=== PATIENT | male | born 1995 | race Asian ===

== ENCOUNTER 2016-09-08 03:42 | Emergency (ER) | payer MEDICAID ==
[2016-09-08] MEDS ORDERED: RANITIDINE 50 MG/2 ML VIAL IVP ONE (03:46)
[2016-09-08] MEDS ORDERED: methylPREDNISolone SOD SUCC 125 MG/2 ML VIAL IVP ONE (03:46)
[2016-09-08] MEDS ORDERED: NS 1,000 ML IV ONE (03:47)
--- NOTE | 2016-09-08 03:51 | EDPHY ---
H & P HPI/ROS: HPI CHIEF COMPLAINT: Allergic reaction HISTORY OF PRESENT ILLNESS: This patient very pleasant 21-year-old male, he presents emergency room with allergic reaction. He states around half an hour ago to an hour he woke up with itching his skin. He started to have trouble breathing and a scratchy throat. He has never had allergy reaction before. States that he ate Pecan nuts around 11PM, he did not have any initial reaction. However around 3:00 a.m. are approximately an hour ago he woke up itching. He realized that he had hives all over he drove here to the emergency room he checked in by private vehicle up front. It was immediately brought back to ER room 5. Upon arrival here in the emergency room was immediately given IM epinephrine 0.3 mg, IV Solu-Medrol, IV Benadryl and IV Zantac. He is placed on full monitoring engineer. He has no respiratory distress he has no stridor. He is coughing and has diffuse urticaria throughout his body. No wheezing. No stridor. Vital signs are stable he is not hypotensive he is not nauseous he is not vomiting. Heart rate 94. He has never had allergic reaction before. Has not eaten PECAN nuts in 3 year, but no known allergic reaction history. Patient denies anything else new denies new medications or contact. Past Medical History: No medical history Past Surgical History: No surgical history Social History: Smokes occasional marijuana, tobacco, denies illicit drugs. Or alcohol. Family History: Noncontributory ROS REVIEW OF SYSTEMS: A comprehensive 10 point review of systems is otherwise negative aside from elements mentioned in the history of present illness. Exam Constitutional appears nontoxic triage nursing summary reviewed, vital signs reviewed, awake/alert. Vital signs are stable. Eyes normal conjunctivae and sclera, EOMI, PERRLA. HENT no stridor, normal inspection, atraumatic, moist mucus membranes, no epistaxis, neck supple/ no meningismus, no raccoon eyes. Respiratory clear to auscultation bilaterally, normal breath sounds, no respiratory distress, no wheezing. Cardiovascular rate normal, regular rhythm, no murmur, no edema, distal pulses normal. Gastrointestinal soft, non-tender, no rebound, no guarding, normal bowel sounds, no distension, no pulsatile mass. Genitourinary no CVA tenderness. Musculoskeletal no midline vertebral tenderness, full range of motion, no calf swelling, no tenderness of extremities, no meningismus, good pulses, neurovascularly intact. Skin diffuse urticaria present Neurologic awake, alert and oriented x 3, AAOx3, moves all 4 extremities equally, motor intact, sensory intact, CN II-XII intact, normal cerebellar, normal vision, normal speech. Psychiatric normal mood/affect. Heme/Lymph/Immune no lymphadenopathy. Differential Diagnosis: Includes but is not limited to in a particular order, severe allergic reaction, anaphylaxis, not allergy Medical Decision Making: Plan for this patient full monitoring engineer, IV establishment, IM epinephrine 0.3 mg, IV Solu-Medrol, IV Benadryl, IV Zantac. Fluid bolus. Normal saline. We will closely monitor for rebound allergic reaction progression of symptoms. Will need to monitor him for at least 3-4 hours. Re-evaluation: 0402AM: Re-examination at this time patient resting comfortably. Feels better after IM epinephrine IV Solu-Medrol IV Zantac IV Benadryl. Vital signs remained stable. Urticaria is improving. No further airway vomiting no stridor no wheezing no drooling. No trouble handling secretions. 0647AM: I did re-evaluate this patient this time is maintained stable. No further signs of allergic reaction. His urticaria is completely resolved. No coughing no trouble breathing no nausea vomiting abdominal cramping. No rash. No progression of symptoms. Been here in the emergency room for 3 hours monitored no further signs of any further allergic reaction. He would like to go home. I explained is risk for rebound reaction he needs of watch out for this. Will have a prescription for prednisone, Benadryl, Zantac for the next 3 days. Epinephrine pen. He understands return emergency room if develops any worsening symptoms includes rebound allergic reaction. He understands if he has severe reaction call 911. He should follow up with an tool keeper. Source: Patient - Medical/Surgical History Hx Asthma: No Hx Chronic Respiratory Disease: No Hx Diabetes: No Hx Cardiac Disease: No Hx Renal Disease: No Other PMH: Denies - Social History Smoking Status: Light smoker Constitutional: Initial Vital Signs Temperature (C) 36.9 C 09/08/16 03:52 Heart Rate 90 09/08/16 03:52 Respiratory Rate 24 H 09/08/16 03:52 Blood Pressure 137/93 H 09/08/16 03:52 O2 Sat (%) 93 09/08/16 03:52 O2 Delivery Mode Room Air O2 (L/minute) 2 Allergies/Adverse Reactions: tree nut [Nuts] Allergy (Verified 09/08/16 03:52) Home Medications: Medication Instructions Recorded Ibuprofen [Motrin (*)] 800 mg PO TID PRN #30 tab 09/25/15 EPINEPHrine [Epipen 0.3 MG] 0.3 mg IM ONCE #2 syr 09/08/16 Ranitidine HCl [Zantac] 150 mg PO DAILY #3 tablet 09/08/16 diphenhydrAMINE [Benadryl 25 MG 25 mg PO BID #6 tab 09/08/16 (*)] predniSONE 60 mg PO DAILY #9 tab 09/08/16 Medical Decision Making - Data Points Medications Given: Discontinued Medications Diphenhydramine HCl (Benadryl Injection) 50 mg IVP EDNOW ONE Stop: 09/08/16 03:47 Last Admin: 09/08/16 03:57 Dose: 50 mg Epinephrine HCl (Epinephrine) 0.3 mg IM EDNOW ONE Stop: 09/08/16 03:47 Last Admin: 09/08/16 03:57 Dose: 0.3 mg Sodium Chloride (Ns) 1,000 mls @ 0 mls/hr IV ONCE ONE PRN Reason: Wide Open Stop: 09/08/16 03:48 Last Admin: 09/08/16 03:57 Dose: 1,000 mls Methylprednisolone Sodium Succinate (Solu-Medrol) 125 mg IVP EDNOW ONE Stop: 09/08/16 03:47 Last Admin: 09/08/16 03:57 Dose: 125 mg Ranitidine HCl (Zantac) 50 mg IVP EDNOW ONE Stop: 09/08/16 03:47 Last Admin: 09/08/16 03:58 Dose: 50 mg Departure - Departure Disposition: Home, Routine, Self-Care Clinical Impression: Nut allergy Anaphylaxis Qualifiers: Encounter type: initial encounter Qualified Code(s): T78.2XXA - Anaphylactic shock, unspecified, initial encounter Allergic reaction Qualifiers: Encounter type: initial encounter Qualified Code(s): T78.40XA - Allergy, unspecified, initial encounter Condition: Good Instructions: Urticaria (ED), Food Allergy (ED), Anaphylaxis (ED), Allergies ( ED) Additional Instructions: 1.Return to the emergency room immediately if he develops any worsening symptoms this includes shortness of breath, trouble swelling, recurrence of rash. 2. I do recommend he follow up with an tool keeper to get formal allergy testing. 3. Do not eat nuts. You may have an allergy to this. Referrals: NONE *PRIMARY CARE P,. [Primary Care Provider] - As per Instructions Prescriptions: diphenhydrAMINE [Benadryl 25 MG (*)] 25 mg PO BID #6 tab EPINEPHrine [Epipen 0.3 MG] 0.3 mg IM ONCE #2 syr predniSONE 60 mg PO DAILY #9 tab Ranitidine HCl [Zantac] 150 mg PO DAILY #3 tablet
[2016-09-08 05:33] VITALS: RESP 16
[2016-09-08 06:57] VITALS: BP 138/68; PULSE 79; TEMP 98.1; O2SAT 99
== END 2016-09-08 06:57 | disposition home or self-care (01) ==
DX: T78.2XXA Anaphylactic shock, unspecified, initial encounter (principal); F17.200 Nicotine dependence, unspecified, uncomplicated; Z91.010 Allergy to peanuts
CPT/HCPCS: 96374